=== PATIENT | female | born 1950 | race Caucasian/White ===

== ENCOUNTER 2020-12-04 19:26 | Observation (INO) ==
[2020-12-04] MEDS ORDERED: ONDANSETRON 4 MG/2 ML VIAL IV PRN (19:59)
[2020-12-04] MEDS: DEXTROSE 5% NACL 0.45% 1,000 ML IV SCH (20:47)
[2020-12-04] MEDS: PIPERACILLIN/TAZOBACTAM 3,375 MG in SODIUM CHLORIDE 0.9% 100 ML IV SCH (21:57)
[2020-12-04] MEDS: MORPHINE 4 MG/1 ML VIAL IV PRN (22:06)
[2020-12-05] MEDS: MORPHINE 4 MG/1 ML VIAL IV PRN ×4 (02:15→19:39)
[2020-12-05] MEDS: PIPERACILLIN/TAZOBACTAM 3,375 MG in SODIUM CHLORIDE 0.9% 100 ML IV SCH ×3 (05:27→21:29)
[2020-12-05 06:16] LABS: Basophils % 0.3 % (0.0-0.8); Eosinophils # 0.1 10*3/uL (0.0-0.87); Eosinophils % 0.5 % (0.00-10.9); Hematocrit 39.8 VOL% (35.7-47.0); Hemoglobin 13.6 GM/DL (12.0-16.0); Immature Granulocytes % 0.4 %; Immature Granulocytes Absolute 0.05 #; Lymphocytes # 1.8 10*3/uL (1.4-4.0); Mean Corpuscular HGB Conc 34.2 GM/DL (32-36); Mean Corpuscular Volume 87.5 FL (87-102); Mean Platelet Volume 10.1 FL (9.6-12.0); Monocytes % 7.4 % (1.7-12.7); Neutrophils % 77.4 % (38.7-73.9); Platelet Count 263 T/CUMM (130-400); Red Blood Count 4.55 MC/CUMM (3.8-5.5); Red Cell Distribution Width 12.6 % (9.3-17.3); White Blood Count 12.7 T/CUMM (4-12)
[2020-12-05] MEDS: DEXTROSE 5% NACL 0.45% 1,000 ML IV SCH ×3 (06:49→22:32)
[2020-12-05 06:57] LABS: Albumin 3.3 G/DL (3.4-5.0); Bilirubin,Total 2.7 MG/DL (0.2-1.0); Calcium 9.3 MG/DL (8.5-10.1); Osmolality,Calculated 276.8 MOS/KG (273-304); Potassium 3.8 MMOL/L (3.5-5.1); Total Protein 6.9 G/DL (6.4-8.2)
[2020-12-05] MEDS: PANTOPRAZOLE 40 MG VIAL IV SCH (08:28)
[2020-12-05] MEDS ORDERED: BUPIVACAINE MPF 0.25% 30 ML VIAL ONE (10:15)
[2020-12-05] MEDS ORDERED: TISSUE ADHESIVE 1 EACH APPLICATOR TOP ONE (10:15)
[2020-12-05] MEDS ORDERED: LIDOCAINE 1%/EPI INJ 20 ML VIAL ONE (10:15)
[2020-12-05] MEDS ORDERED: ONDANSETRON 4 MG/2 ML VIAL ONE (10:21)
[2020-12-05] MEDS ORDERED: fentaNYL 100 MCG/2 ML VIAL ONE (10:21)
[2020-12-05] MEDS ORDERED: LIDOCAINE 2% 5 ML VIAL ONE (10:21)
[2020-12-05] MEDS ORDERED: DEXAMETHASONE 4 MG/1 ML VIAL ONE (10:21)
[2020-12-05] MEDS ORDERED: propofoL 200 MG/20 ML VIAL IV ONE (10:21)
[2020-12-05] MEDS ORDERED: ROCURONIUM 50 MG/5 ML VIAL IV ONE (10:21)
[2020-12-05] MEDS ORDERED: SUCCINYLCHOLINE 200 MG/10 ML VIAL ONE (10:21)
[2020-12-05] MEDS ORDERED: ONDANSETRON 4 MG/2 ML VIAL IV PRN (10:50)
[2020-12-05] MEDS ORDERED: HYDROmorphone 2 MG/1 ML VIAL IV PRN (10:50)
[2020-12-05] MEDS ORDERED: diphenhydrAMINE 50 MG/1 ML VIAL IV PRN (10:50)
[2020-12-05] MEDS ORDERED: PROMETHAZINE INJ 25 MG in SODIUM CHLORIDE 0.9% 50 ML IV PRN (10:50)
[2020-12-05] MEDS ORDERED: MEPERIDINE 25 MG/1 ML VIAL IV PRN (10:50)
[2020-12-05] MEDS ORDERED: SEVOFLURANE 1 UNIT/15 MINUTE INH ONE ×3 (10:57→11:06)
[2020-12-05] MEDS ORDERED: PHENYLEPHRINE 1 MG/10 ML SYRINGE IV ONE (11:06)
[2020-12-05] MEDS ORDERED: GLYCOPYRROLATE 0.4 MG/2 ML VIAL ONE (11:06)
[2020-12-05] MEDS ORDERED: NEOSTIGMINE 10 MG/10 ML VIAL ONE (11:07)
[2020-12-06] MEDS: MORPHINE 4 MG/1 ML VIAL IV PRN ×3 (00:06→19:26)
[2020-12-06] MEDS: DEXTROSE 5% NACL 0.45% 1,000 ML IV SCH ×3 (03:25→23:27)
[2020-12-06] MEDS: PIPERACILLIN/TAZOBACTAM 3,375 MG in SODIUM CHLORIDE 0.9% 100 ML IV SCH ×3 (05:41→21:11)
[2020-12-06] MEDS: SPIRONOLACTONE 100 MG TABLET PO SCH (09:00)
[2020-12-06] MEDS: PANTOPRAZOLE 40 MG VIAL IV SCH (09:00)
[2020-12-06] MEDS: ASCORBIC ACID 500 MG TABLET PO SCH (09:01)
[2020-12-06] MEDS: CHOLECALCIFEROL 5,000 UNIT TABLET PO SCH (09:01)
[2020-12-06] MEDS: MONTELUKAST 10 MG TABLET PO SCH (09:01)
[2020-12-06] MEDS: SIMETHICONE CHEW 80 MG TABLET PO PRN ×2 (12:08→19:29)
[2020-12-07] MEDS: PIPERACILLIN/TAZOBACTAM 3,375 MG in SODIUM CHLORIDE 0.9% 100 ML IV SCH (04:22)
[2020-12-07] MEDS: DEXTROSE 5% NACL 0.45% 1,000 ML IV SCH (04:22)
[2020-12-07 06:12] LABS: Basophils % 0.5 % (0.0-0.8); Eosinophils # 0.3 10*3/uL (0.0-0.87); Eosinophils % 3.1 % (0.00-10.9); Hematocrit 34.6 VOL% (35.7-47.0); Hemoglobin 11.5 GM/DL (12.0-16.0); Immature Granulocytes % 0.6 %; Immature Granulocytes Absolute 0.05 #; Lymphocytes # 2.3 10*3/uL (1.4-4.0); Lymphocytes % 25.8 % (21.3-54.2); Mean Corpuscular HGB Conc 33.2 GM/DL (32-36); Mean Corpuscular Volume 88.3 FL (87-102); Mean Platelet Volume 9.9 FL (9.6-12.0); Monocytes % 8.5 % (1.7-12.7); Neutrophils % 61.5 % (38.7-73.9); Platelet Count 209 T/CUMM (130-400); Red Blood Count 3.92 MC/CUMM (3.8-5.5); Red Cell Distribution Width 12.9 % (9.3-17.3); White Blood Count 8.8 T/CUMM (4-12)
[2020-12-07 06:41] LABS: Calcium 8.9 MG/DL (8.5-10.1); Osmolality,Calculated 277.5 MOS/KG (273-304); Potassium 3.6 MMOL/L (3.5-5.1)
[2020-12-07] MEDS ORDERED: POLYETHYLENE GLYCOL POWDER 17 GM PACK PO PRN (08:10)
[2020-12-07] MEDS: CHOLECALCIFEROL 5,000 UNIT TABLET PO SCH (09:12)
[2020-12-07] MEDS: ASCORBIC ACID 500 MG TABLET PO SCH (09:12)
[2020-12-07] MEDS: SIMETHICONE CHEW 80 MG TABLET PO PRN (09:12)
[2020-12-07] MEDS: PANTOPRAZOLE 40 MG VIAL IV SCH (09:12)
[2020-12-07] MEDS: MONTELUKAST 10 MG TABLET PO SCH (09:12)
[2020-12-07] MEDS: SPIRONOLACTONE 100 MG TABLET PO SCH (09:12)
[2020-12-07 11:57] VITALS: BP 139/69
== END 2020-12-07 14:20 | disposition home or self-care (01) ==
LOC: EDUNIT# → EDBD → N.ED 19:26 → N.EDINP 19:26 → N.3E 21:04
PROVIDERS: ADMIT Surgery; ATTEND Surgery